=== PATIENT | female | born 1960 | race Caucasian/White ===

== ENCOUNTER 2018-09-06 01:35 | Emergency (ER) | payer OTHER, SELFPAY | END 2018-09-06 03:40 | disposition short-term general hospital (02) | LOC: NAV ERS 01:35 | DX: Z04.41 Encounter for examination and observation following alleged adult rape (principal); F17.210 Nicotine dependence, cigarettes, uncomplicated; Z79.899 Other long term (current) drug therapy | CPT/HCPCS: 99285 ==

== ENCOUNTER 2018-10-08 22:02 | Emergency (ER) | payer OTHER ==
[2018-10-08] MEDS ORDERED: Bacitracin Zinc 1 Packet ONE (22:28)
[2018-10-08] MEDS ORDERED: Naproxen 500 MG TAB ONE (23:01)
--- NOTE | 2018-10-08 23:18 | RAD ---
THREE VIEWS LEFT ANKLE 10/08/18 INDICATION: Left ankle injury; patient rolled ankle hopping a fence. FINDINGS: No acute fracture or subluxation is evident. Ankle mortise and talar dome are preserved. IMPRESSION: No acute osseous abnormality. POS: NITA
== END 2018-10-08 23:05 | disposition home or self-care (01) ==
LOC: NAV ERS 22:02
DX: S93.402A Sprain of unspecified ligament of left ankle, initial encounter (principal); F17.210 Nicotine dependence, cigarettes, uncomplicated; Z79.899 Other long term (current) drug therapy; X50.9XXA Other and unspecified overexertion or strenuous movements or postures, initial encounter

== ENCOUNTER 2019-04-02 11:31 | Emergency (ER) | payer OTHER ==
--- NOTE | 2019-04-02 12:23 | RAD ---
Portable frontal chest radiograph: 04/02/2019 COMPARISON: 07/06/2006 HISTORY: Right arm pain FINDINGS: No pneumothorax or large volume pleural fluid. No focal consolidation or alveolar edema. Th ere is minimal increased density in the right lung base with mild obscuration of right hemidiaphragm, likely on the basis of volume loss. Mild infiltrate or pleural fluid in right lung bas e cannot be fully excluded. IMPRESSION: No lobar consolidation or alveolar edema.
--- NOTE | 2019-04-02 12:27 | RAD ---
Right shoulder 3 views: 04/02/2019 COMPARISON: None HISTORY: Sudden onset of pain in the right upper extremity FINDINGS: Mild undersurface osteophyte formation of the right acromioclavicular interspace noted. No widening of the acromioclavicular or coracoclavicular interspace. No displaced fracture or dislocation. Mild glenohumeral joint space narrowing with mild inferior glenoid osteophytosis. IMPRESSION: No acute osseous abnormality.
[2019-04-02] MEDS ORDERED: HYDROcodone/Acetaminophen 5/325 mg Tablet ONE (12:43)
[2019-04-02 12:46] LABS: Hemoglobin 11.1 g/dL (12.0-16.0); Mean Corpuscular HGB CONC 32.5 g/dL (32.0-36.0); Mean Corpuscular Hemoglobin 29.6 pg (27.0-31.0); Mean Corpuscular Volume 90.8 fL (78.0-98.0); Mean Platelet Volume 6.5 fL (7.4-10.4); Platelet Count 74 thou/uL (130-400); RBC Distribution Width 13.1 % (11.5-14.5); Red Blood Cell (RBC) Count 3.77 mill/uL (4.20-5.40); White Blood Cell (WBC) Count 4.1 thou/uL (4.8-10.8)
[2019-04-02 12:59] LABS: ALT (SGPT) 89 U/L (8-55); AST (SGOT) 87 U/L (5-34); Albumin 3.2 g/dL (3.5-5.0); Alkaline Phosphatase 177 U/L (40-150); Anion Gap 14 mmol/L (10-20); BUN (Urea Nitrogen) 10 mg/dL (9.8-20.1); Bilirubin, Total 0.3 mg/dL (0.2-1.2); Calc. Creatinine Clearance 0 mL/min (70-130); Calcium 8.6 mg/dL (7.8-10.44); Carbon Dioxide 26 mmol/L (22-29); Chloride 105 mmol/L (98-107); Estimated GFR-MDRD 73; Globulin 3.5 g/dL (2.4-3.5); Glucose 92 mg/dL (70-105); Potassium 4.2 mmol/L (3.5-5.1); Protein, Total 6.7 g/dL (6.0-8.3); Sodium 141 mmol/L (136-145)
[2019-04-02 13:09] LABS: Eosinophils 2 % (0-10); Lymphocytes 21 % (21-51); MDiff Complete? YES; Monocytes 11 % (0-10); Neutrophil 66 % (42-75); Platelet Morphology Comment Appears Decreased; RBC Morphology Normal
== END 2019-04-02 13:17 | disposition home or self-care (01) ==
LOC: NAV ERS 11:31
DX: M25.511 Pain in right shoulder (principal); G40.909 Epilepsy, unspecified, not intractable, without status epilepticus; F41.9 Anxiety disorder, unspecified; F32.9 Major depressive disorder, single episode, unspecified; Z79.899 Other long term (current) drug therapy
CPT/HCPCS: 36415; 71045; 80053; 83880; 84484; 85025; 93005